=== PATIENT | female | born 1950 | race Caucasian/White ===

== ENCOUNTER 2019-02-23 20:01 | Emergency (ER) | payer MEDICARE, MEDICAID ==
[~2019-02-23] VITALS: Ht 160 cm; Wt 71.3 kg
[2019-02-23 20:27] VITALS: BP 124/84
--- NOTE | 2019-02-23 22:42 | NUR ---
NA WHEN CALLED TO BE ROOMED
--- NOTE | 2019-02-23 22:48 | NUR ---
NAX2
--- NOTE | 2019-02-23 23:11 | NUR ---
NIL X3
== END 2019-02-23 23:13 | disposition left against medical advice (07) ==
LOC: ED 23:07
DX: R31.9 Hematuria, unspecified (principal); R10.13 Epigastric pain
CPT/HCPCS: 99281

== ENCOUNTER 2019-03-16 08:51 | Outpatient (CLI) | payer MEDICARE, MEDICAID ==
[2019-03-16] MEDS ORDERED: HYDR-3307 PO (09:29)
[2019-03-16] MEDS ORDERED: ATOR20TA PO (09:29)
[2019-03-16] MEDS ORDERED: ALPR1TAB2 PO (09:29)
== END 2019-03-16 23:59 | disposition home or self-care (01) ==
LOC: STAR 08:51
PROVIDERS: ATTEND Internal Medicine Gastroenterology
DX: K86.1 Other chronic pancreatitis (principal)
CPT/HCPCS: 36415; 80048; 80076; 85025; 85610; 93005

== ENCOUNTER 2019-04-22 07:27 | Day surgery (SDC) | payer MEDICARE, MEDICAID ==
[~2019-04-22] VITALS: Ht 157.5 cm; Wt 64.2 kg
[~2019-04-22 07:27] MED LIST: ALPR1TAB2 PO; ATOR20TA PO; HYDR-3307 PO
[2019-04-22] MEDS ORDERED: SODIUM CHLORIDE 0.9% 1,000 ML IV SCH (07:54)
[2019-04-22 08:10] VITALS: BP 114/75
[2019-04-22] MEDS ORDERED: VANCOMYCIN PMX 1GM/200ML 200 ML IVPB ONE (08:30)
[2019-04-22] MEDS ORDERED: PLEASE ENTER HEIGHT AND WEIGHT MC SCH (08:30)
[2019-04-22] MEDS ORDERED: LIDOCAINE-MPF 1%, 5ML ONE (09:26)
[2019-04-22] MEDS ORDERED: FLUMAZENIL 0.1 MG/1 ML, 5ML ONE (09:35)
[2019-04-22] MEDS ORDERED: NALOXONE 1 MG/ML, 2ML ONE (09:35)
[2019-04-22] MEDS ORDERED: MIDAZOLAM 1 MG/ML, 5ML ONE (09:35)
[2019-04-22] MEDS ORDERED: FENTANYL PF 100 MCG/2ML ONE (09:35)
== END 2019-04-22 12:00 | disposition home or self-care (01) ==
LOC: OUT 07:27
PROVIDERS: ATTEND Specialist
DX: Z45.2 Encounter for adjustment and management of vascular access device (principal); C25.0 Malignant neoplasm of head of pancreas; K86.81 Exocrine pancreatic insufficiency; F17.210 Nicotine dependence, cigarettes, uncomplicated; E11.9 Type 2 diabetes mellitus without complications
CPT/HCPCS: 36561; 77001; 99156; 99157; C1788; J1642; J2250; J3010; J3370; J2310

== ENCOUNTER → 2019-05-13 | Outpatient (CLI) | payer MEDICARE, MEDICAID | END | disposition home or self-care (01) | LOC: PETCFH 09:34 | PROVIDERS: ATTEND Internal Medicine Gastroenterology | DX: C25.0 Malignant neoplasm of head of pancreas (principal); K83.1 Obstruction of bile duct; Z90.49 Acquired absence of other specified parts of digestive tract; Z88.0 Allergy status to penicillin; Z88.2 Allergy status to sulfonamides; Z88.6 Allergy status to analgesic agent; Z88.8 Allergy status to other drugs, medicaments and biological substances | CPT/HCPCS: 78226; A9537 ==